=== PATIENT | male | born 1990 | race Asian ===

== ENCOUNTER 2017-12-06 00:06 | Emergency (ER) | payer SELFPAY ==
[~2017-12-06] VITALS: Ht 170.2 cm; Wt 63.5 kg
[2017-12-06 00:06] VITALS: BP 117/74
[2017-12-06] MEDS ORDERED: DEXAMETHASONE SOD PHOSPHATE 10 MG/ML VIAL ONE (00:59)
[2017-12-06] MEDS ORDERED: DEXAMETHASONE SOD PHOSPHATE 10 MG/ML VIAL IV ONE (01:00)
[2017-12-06] MEDS ORDERED: DEXAMETHASONE SOD PHOSPHATE 10 MG/ML VIAL IM ONE (01:30)
== END 2017-12-06 01:02 | disposition home or self-care (01) ==
LOC: ER 00:11
DX: L02.01 Cutaneous abscess of face (principal); T78.3XXA Angioneurotic edema, initial encounter
CPT/HCPCS: 96372; 99283; A4606; J1100; Z7610